=== PATIENT | female | born 1955 | race Caucasian/White ===

== ENCOUNTER 2021-08-04 16:15 | Emergency (ER) | payer MEDICARE ==
[~2021-08-04] VITALS: Ht 162.6 cm; Wt 98.4 kg
[2021-08-04] MEDS ORDERED: PREDNISONE20 MG PO (18:11)
[2021-08-04] MEDS ORDERED: PROAIR HFA INH8.5 GM IH (18:11)
== END 2021-08-04 18:48 | disposition home or self-care (01) ==
LOC: FSED 16:18
DX: J20.9 Acute bronchitis, unspecified (principal)
CPT/HCPCS: 83518; 87400; 99283